=== PATIENT | male | born 2005 | race Caucasian/White ===

== ENCOUNTER → 2024-12-12 09:07 | Outpatient (BNVA) | payer SELFPAY | DX: Z02.89 Encounter for other administrative examinations (principal) ==

== ENCOUNTER 2025-07-24 23:05 | Emergency (ER) | payer OTHER, SELFPAY ==
[2025-07-24 23:12] VITALS: BP 144/65; PULSE 120; RESP 20; TEMP 37.7; O2SAT 95; BMI 22.5
[2025-07-24 23:57] LABS: IDNOW Serial# 58CA691E; Strep A Nucleic Acid Negative (Negative)
[2025-07-25 00:10] LABS: Resp Syncy Virus RNA Qual PCR NEGATIVE (Negative); SARS COV2 PCR INHOUSE NEGATIVE (Negative)
--- OUTSIDE RECORDS SUMMARY | 2025-07-25 08:50 | XMS_ITS | Encounter Summary ---
Author Organization [facility] Address [address] [place] [address] Phone Care Team Providers Care Candle Maker Name Role Phone Bruno Zuñiga MD Primary Care Provider [phone] Encounter Details Date Type Department Care Team (Late st Contact Info) Description 03/13/2016 Documentation [facility] [place] [address] [place] [address] Family Medicine, Physician [address] [place] [address] Social History Tobacco Use Types Packs/Day Years Used Date Smoking Tobacco: Never Assessed Sex and Gender Information Value Date Recorded Sex Assigned at Not on file Legal Sex Male 6:36 PM EDT Gender Identity Not on file Sexual Orientation Not on file documented as of this encounter Plan of Treatment Not on file documented as of this encounter Visit Diagnoses Not on filedocumented in this encounter Care Teams Candle Maker Relationship Specialty Start Date End Date Bruno Zuñ[place] [address] [place] [address] PCP - General 12/02/17 07/22/22 documented as of this encounter
--- OUTSIDE RECORDS SUMMARY | 2025-07-25 08:50 | XMS_ITS | Encounter Summary ---
Author Organization [facility] Address [address] [place] [address] Phone Care Team Providers Care Collection Systems Modeler Name Role Phone Bruno Zuñiga MD Primary Care Provider Encounter Details Date Type Department Care Team (Late st Contact Info) Description 12/16/2013 [facility] Medicine [address] [place] [address] Family Medicine, Physician [address] [place] [address] Social History Tobacco Use Types Packs/Day Years [...] on filedocumented in this encounter Care Teams Collection Systems Modeler Relationship Specialty Start Date End Date Bruno Zuñ[place] [address] [place] [address] PCP - General 12/02/17 07/22/22 documented as of this encounter
--- OUTSIDE RECORDS SUMMARY | 2025-07-25 08:50 | XMS_ITS | Encounter Summary ---
Author Organization [facility] Address [address] [place] [address] Phone Care Team Providers Care Refinery Technician Name Role Phone Bruno Zuñiga MD Primary Care Provider [phone] Encounter Details Date Type Department Care Team (Late st Contact Info) Description 12/20/2013 [facility] Family [facility] [address] [place], [place] [id number] Family Medicine, Physician [address] [place] [address] Social History Tobacco Use Types Packs/Day Years [...] on filedocumented in this encounter Care Teams Refinery Technician Relationship Specialty Start Date End Date Bruno Zuñ[place] [address] [place] [address] PCP - General 12/02/17 07/22/22 documented as of this encounter
--- OUTSIDE RECORDS SUMMARY | 2025-07-25 08:50 | XMS_ITS | Encounter Summary ---
Author Organization [facility] Address [address] [place] [address] Phone Care Team Providers Care Behavior Support Specialist Name Role Phone Bruno Zuñiga MD Primary Care Provider [phone] Encounter Details Date Type Department Care Team (Late st Contact Info) Description 03/28/2014 Documentation [facility] [place] [address] [place] [address] Family Medicine, Physician [address] [place] [address] Social History Tobacco Use Types Packs/Day Years [...] on filedocumented in this encounter Care Teams Behavior Support Specialist Relationship Specialty Start Date End Date Bruno Zuñiga [place] [address] [place] [address] PCP - General 12/02/17 07/22/22 documented as of this encounter
--- OUTSIDE RECORDS SUMMARY | 2025-07-25 08:50 | XMS_ITS | Encounter Summary ---
Author Organization [facility] Address [address] [place] [address] Phone Care Team Providers Care Remote Inpatient Coder Name Role Phone Bruno Zuñiga MD Primary Care Provider [phone] Encounter Details Date Type Department Care Team (Late st Contact Info) Description 01/22/2014 Immunization [facility] Family Medicine [address] [place] [address] Family Medicine, Physician [address] [place] [address] Social History Tobacco Use Types Packs/Day Years [...] on filedocumented in this encounter Care Teams Remote Inpatient Coder Relationship Specialty Start Date End Date Bruno Zuñ[place] [address] [place] [address] PCP - General 12/02/17 07/22/22 documented as of this encounter
--- OUTSIDE RECORDS SUMMARY | 2025-07-25 08:50 | XMS_ITS | Encounter Summary ---
Author Organization [facility] Address [address] [place] [address] Phone Care Team Providers Care Manufacturing Engineering Professor Name Role Phone Bruno Zuñiga MD Primary Care Provider [phone] Encounter Details Date Type Department Care Team (Late st Contact Info) Description 12/14/2013 Medication Management [facility] [place] [address] [place] [address] Family Medicine, Physician [address] [place] [address] Social History Tobacco Use Types Packs/Day Years [...] on filedocumented in this encounter Care Teams Manufacturing Engineering Professor Relationship Specialty Start Date End Date Bruno Zuñiga [place] [address] [place] [address] PCP - General 12/02/17 07/22/22 documented as of this encounter
--- OUTSIDE RECORDS SUMMARY | 2025-07-25 08:50 | XMS_ITS | Encounter Summary ---
Author Organization [facility] Address [address] [place] [address] Phone Care Team Providers Care Chief Cardiopulmonary Technologist Name Role Phone Bruno Zuñiga MD Primary Care Provider [phone] Encounter Details Date Type Department Care Team (Late st Contact Info) Description 08/04/2017 Documentation [facility] [place] [address] [place] [address] Family Medicine, Physician [address] [place] [address] Social History Tobacco Use Types Packs/Day Years [...] on filedocumented in this encounter Care Teams Chief Cardiopulmonary Technologist Relationship Specialty Start Date End Date Bruno Zuñ[place] [address] [place] [address] PCP - General 12/02/17 07/22/22 documented as of this encounter
--- OUTSIDE RECORDS SUMMARY | 2025-07-25 08:50 | XMS_ITS | Data Portability ---
Author Organization [facility] [address] Address [address] [place] [address] Assessment No assessment recorded. Plan of Treatment Reminders Order Date Submit Date Provider Last Modified By Organization Details Last Modified Time Details Appointments None recorded. Lab None recorded. Referral None recorded. Procedures None recorded. Surgeries None recorded. Imaging None recorded. Medication Orders ciprofloxac in 0.3 % eye drops [address] [id number], [address] [place], [address], 3 16:40:01 Patient TargetsNo targets recorded. Patient InstructionsNo instructions recorded. Reason for Referral None Reported. Problems No Known Problems Medical Equipment None Reported. Allergies No known drug allergies Medications Name Sig Start Date Stop Date Status Note LastModified by Organization Details LastModified Time ciprofloxaci n 0.3 % eye drops INSTILL 1 DROP INTO AFFECTED EYE(S) BY OPHTHALMIC ROUTE EVERY 2 HOURSWHILE AWAKE FOR 2 DAYS THEN 1 DROP EVERY 4 HRS WHILE AWAKE FOR 5 DAYS 2022 active Not Available Not Available Not Avai lable Vitals Date Recorded Body height Body mass index (BMI) [Percentile] Per age and sex Body mass index (BMI) Body weight Oxygen saturation Heart rate Respiratory rate Body temperature Systolic And Diastolic Provider Name and Address Organization Details Last Updated DateTime 3 187.96 cm 28 % 21.2 kg/m2 95183.7 4 g 98 % 110 /min 18 /min 98.6 [degF] 122/78 mm[Hg] [facility] 3 16:17:02 Social History Question Answer Notes LastModified by Organizat ion Details LastModified Time Tobacco Smoking Status Never Smoker [facility] - [facility] 03/18/2023 16:17:44 Have You Recently Traveled Abroad? No [email or web address] Information not available 03/18/2023 Sex: Unknown Functional Status Question Answer Note LastModified by Organizat ion Details LastModified Time Do you use any illicit or recreational drugs? No Information not available 03/18/2023 Do you or have you ever used any other forms of tobacco or nicotine? No [email or web address] Information not available 03/18/2023 What is your level of alcohol consumption? None [email or web address] Information not available 03/18/2023 Mental Status None recorded. Family History Relationship Description Onset Age of this Age Resolved Age Notes LastModified by Organization Details LastModified Time Father No current problems or disability Not available 03/18 16:17:35 Mother No current problems or disability [email or web address] Not available 03/18 16:17:35 Medical History No medical history recorded. Past Encounters Encounter ID Performer Location Encounter Start Date Encounter Closed Date Diagnosis/Indication Diagnosis SNOMED-CT Code Diagnosis ICD10 Code Diagnosis IMO Codes Diagnosis Note [id number] [facility] [address] [place] [address] 11/01/2021 17:08:30 11/01/2021 18:38:37 [id number] [place] [address] [address] [place] [address] 03/18/2023 16:01:34 03/18/2023 16:41:24 Acute conjunctivitis of left eye 1645172272 54694 H10.32 Based on your presentati on and exam, you are going diagnosed with Conjunctiv itis. I am going to cover you for a bacterial infection in the eye with antibiotic eye drops. Sometimes these symptoms can be caused by a virus or allergies. Viral infections with spontaneou sly resolve after 7-10 days and do not require treatment. If it is an allergy cause sometime oral allergy medication s will help with these symptoms or a allergy eye drop that can be purchased OTC. The following are my recommenda tions to help with your symptoms and this diagnosis: 1. Do not rub your eyes this can cause it to spread or damage the cornea of your eye.2. Wash surfaces such as cell phones, remotes, door knob frequently , because this is how it is transmitte d to others.3. Do not wear contacts for at least 1 week if you have contacts.4 . No makeup5. You can take Ibuprofen or Tylenol for discomfort if you are not allergic to them.6. If you get lubricatin g eye drops and put them in the refrigerat or - this can help with itching and discomfort . You should be seen again if you develop any of the following symptoms1. Eye pain or pressure behind the eye.2. Redness or significan t swelling of the eyelid or around the eye3. Headache4. Fever > 100.55. No improvemen t in current symptoms in the next 1 week. Thank you for using [facility] today, please feel free to contact us with any questions or concerns. Health Concerns Section Related Observation LastModified by Organization Detai ls LastModified Time None Recorded Concern Status LastModified by Organization Details LastModified Time None Recorded Advance Directives Directive None Recorded Payers Insurance Date Sequence Insurance Name Policy Number Policy Perdomo Covered Member ID Perdomo Member ID Guarantor Name 03/18/2023 1 [facility] Carlos Mckeon [id number] Carlos Mckeon 06/18/2022 GENERIC WORKER'S COMP (MOVED TO HOLD) [id number] Kari Chick-Renard-A Carlos Mckeon 06/18/2022 GENERIC WORKERS COMP [id number] Kari Chick-Renard-A Carlos Mckeon 06/25/2022 KARI Oc-Chick Renard A Ellie Carlos Mckeon Notes Date Note Type Note Provider Name and Address Organization Details Recorded Time 03/18/20 text/htm l Eye problemsReported by PatientHPIFor eye symptoms, patient reportsrednessanddischargebut reportsno blurred vision. For source of patient information, patient reportsinformation obtained from patient. For location, patient reportsleft. For severity, patient reportsmoderate. For onset/timing, patient [id number]. pt c/o left eye redness, crusty, irritated, & leakage x few days--no visual issues--pt reports tested positive for covid on Thursday & eye issue started at that time Jenni Crews NP [address] [place], [address], [place] - [facility] 03/18/2023 18:18:41
--- OUTSIDE RECORDS SUMMARY | 2025-07-25 08:50 | XMS_ITS | Encounter Summary ---
Author Organization [facility] Address [address] [place] [address] Phone Care Team Providers Care Manager Performance Improvement Name Role Phone Bruno Zuñiga MD Primary Care Provider [phone] Encounter Details Date Type Department Care Team (Late st Contact Info) Description 12/14/2013 Conversion Encounter [facility] [address] [place] [address] Social History Tobacco Use Types Packs/Day Years [...] on filedocumented in this encounter Care Teams Manager Performance Improvement Relationship Specialty Start Date End Date Bruno Zuñiga MD [address] [place] [address] PCP - General 12/02/17 07/22/22 documented as of this encounter
--- OUTSIDE RECORDS SUMMARY | 2025-07-25 08:50 | XMS_ITS | Encounter Summary ---
Author Organization [facility] Address [address] [place] [address] Phone Care Team Providers Care Drum Dyeing Machine Operator Name Role Phone Bruno Zuñiga MD Primary Care Provider [phone] Encounter Details Date Type Department Care Team (Late st Contact Info) Description 03/13/2015 Documentation [facility] [place] [address] [place] [address] Family Medicine, Physician [address] [place] [address] Social History Tobacco Use Types Packs/Day Years [...] on filedocumented in this encounter Care Teams Drum Dyeing Machine Operator Relationship Specialty Start Date End Date Bruno Zuñ[place] [address] [place] [address] PCP - General 12/02/17 07/22/22 documented as of this encounter
--- OUTSIDE RECORDS SUMMARY | 2025-07-25 08:50 | XMS_ITS | Encounter Summary ---
Author Organization [facility] Address [address] [place] [address] Phone Care Team Providers Care Clothing Trades Workers Name Role Phone Bruno Zuñiga MD Primary Care Provider [phone] Encounter Details Date Type Department Care Team (Late st Contact Info) Description 06/18/2015 Medication Management [facility] [place] [address] [place] [address] Family Medicine, Physician [address] [place] [address] Social History Tobacco Use Types Packs/Day Years [...] on filedocumented in this encounter Care Teams Clothing Trades Workers Relationship Specialty Start Date End Date Bruno Zuñiga [place] [address] [place] [address] PCP - General 12/02/17 07/22/22 documented as of this encounter
--- OUTSIDE RECORDS SUMMARY | 2025-07-25 08:50 | XMS_ITS | Encounter Summary ---
Author Organization [facility] Address [address] [place] [address] Phone Care Team Providers Care Donor Support Technician Name Role Phone Bruno Zuñiga MD Primary Care Provider [phone] Encounter Details Date Type Department Care Team (Late st Contact Info) Description 03/10/2015 Documentation [facility] [place] [address] [place] [address] Family Medicine, Physician [address] [place] [address] Social History Tobacco Use Types Packs/Day Years [...] on filedocumented in this encounter Care Teams Donor Support Technician Relationship Specialty Start Date End Date Bruno Zuñ[place] [address] [place] [address] PCP - General 12/02/17 07/22/22 documented as of this encounter
--- OUTSIDE RECORDS SUMMARY | 2025-07-25 08:50 | XMS_ITS | Encounter Summary ---
Author Organization [facility] Address [address] [place] [address] Phone Care Team Providers Care Cone Treater Name Role Phone Bruno Zuñiga MD Primary Care Provider [phone] Encounter Details Date Type Department Care Team (Late st Contact Info) Description 03/21/2014 Documentation [facility] [place] [address] [place] [address] Family Medicine, Physician [address] [place] [address] Social History Tobacco Use Types Packs/Day Years [...] on filedocumented in this encounter Care Teams Cone Treater Relationship Specialty Start Date End Date Bruno Zuñ[place] [address] [place] [address] PCP - General 12/02/17 07/22/22 documented as of this encounter
--- OUTSIDE RECORDS SUMMARY | 2025-07-25 08:50 | XMS_ITS | Encounter Summary ---
Author Organization [facility] Address [address] [place] [address] Phone Care Team Providers Care Video Game Engineer Name Role Phone Bruno Zuñiga MD Primary Care Provider [phone] Encounter Details Date Type Department Care Team (Late st Contact Info) Description 03/21/2014 Medication Management [facility] [place] [address] [place] [address] Family Medicine, Physician [address] [place] [address] Social History Tobacco Use Types Packs/Day Years [...] on filedocumented in this encounter Care Teams Video Game Engineer Relationship Specialty Start Date End Date Bruno Zuñiga [place] [address] [place] [address] PCP - General 12/02/17 07/22/22 documented as of this encounter
--- OUTSIDE RECORDS SUMMARY | 2025-07-25 08:50 | XMS_ITS | Clinical Summary ---
Author Organization [facility] Address [address] [place] [address] Phone Care Team Providers Care Medical Social Worker Name Role Phone Unavailable Primary Care Provider Unavailabl e Allergies No known active allergies Medications No known medications Active Problems Problem Noted Date Diagnosed Date Chest wall asymmetry 08/09/2018 Overview (08/09/2018): [facility] at [facility] Assessment & Plan (08/09/2018 10:49 AM EST): Seen at [facility], improving nicely Personal history of underimmunization status Overview (08/09/2018): Personal history of underimmunization status (V15.83) Onset: 03/13/2016 Added by: Bruno Zuñiga Undervaccinated at parental request. Discussed in detail again today and parent declines. Assessment & Plan (08/09/2018 10:50 AM EST): Will do Menactra today, discussed travel and other vaccines recommended. Immunizations Immunization Administration Dates Next Due DTaP 5 03/09/2009, 8,01/27/2008, 008 Hep A, ped/adol 01/31/2019 Hep B, ped/adol 01/31/2019 IPV 01/31/2019 MMR 09/01/2018,08/04/2017 Meningococcal B Trumenba 02/08/2019 Meningococcal Conj (Menactra) MCV4P 08/09/2018 Tdap 03/09/2015 Typhoid, ViCPs 01/30/2019 Varicella 11/20/2008,03/13/2007 Family History Medical History Relation Name Comments Hypertension Father Heart disease (Premature) Maternal Grandfather Breast cancer Mother's Sister Diabetes Paternal Grandfather Hypertension Paternal Grandfather Relation Name Status Comments Father Maternal Grandfather Mother's Sister Paternal Grandfather Social History Tobacco Use Types Packs/Day Years Used Date Smoking Tobacco: Never Smokeless Tobacco: Never Alcohol Use Standard Drinks/Week Comments Never 0 (1 standard drink = 0.6 oz pur e alcohol) Sex and Gender Information Value Date Recorded Sex Assigned at Not on file Legal Sex Male 6:36 PM EDT Gender Identity Not on file Sexual Orientation Not on file Last Filed Vital Signs Vital Sign Reading Time Taken Comments Blood Pressure 126/62 09/01/2018 9:43 AM EST Pulse 82 09/01/2018 9:43 AM EST Temperature 37 C (98.6 F) 12/22/2017 11:57 AM EDT Respiratory Rate - - Oxygen Saturation 99% 09/01/2018 9:43 AM EST Inhaled Oxygen Concentration - - Weight 62.8 kg (138 lb 7.2 oz) 09/01/2018 9:43 A M EST Height 181 cm (5' 11.25 ) 09/01/2018 9:43 AM EST Body Mass Index 19.17 09/01/2018 9:43 AM EST Plan of Treatment Health Maintenance Due Date Last Done Comments HPV Vaccines (1 - Male 3-dose series) 2018 Hepatitis B Vaccines (2 of 3 - 3-dose series) 02/28/2019 01/31/2019 IPV Vaccines (2 of 3 - 4-dose series) 02/28/2019 01/31/2019 Meningococcal Vaccine (2 - 2-dose series) 2019 08/09/2018 Hepatitis A Vaccines (2 of 2 - 2-dose series) 08/03/2019 01/31/2019 Men B Vaccine (2 of 2 - Trumenba SCDM 2-dose series) 08/11/2019 02/08/2019 Influenza Vaccines (#1) 2025 DTaP,Tdap,and Td Vaccines (6 - Td or Tdap) 03/09/2025 03/09/2015, 03/09/2009, 03/10/2008, Additional history exists COVID-19 Vaccine ( season) 2025 Varicella Vaccines Completed 11/20/2008, 03/13/2007 MMR Vaccines Completed 09/01/2018, 08/04/2017 HIB Vaccines Aged Out No longer eligi ble based on patient's age to complete this topic Pneumococcal Vaccine Aged Out No long er eligible based on patient's age to complete this topic Insurance [employer]
--- OUTSIDE RECORDS SUMMARY | 2025-07-25 08:50 | XMS_ITS | Encounter Summary ---
Author Organization [facility] Address [address] [place] [address] Phone Care Team Providers Care Patternmaker All Around Name Role Phone Bruno Zuñiga MD Primary Care Provider Encounter Details Date Type Department Care Team (Late st Contact Info) Description 03/21/2014 Medication Management [facility] [place] [address] [place] [address] Family Medicine, Physician [address] [place] [address] Social History Tobacco Use Types Packs/Day Years [...] on filedocumented in this encounter Care Teams Patternmaker All Around Relationship Specialty Start Date End Date Bruno Zuñiga [place] [address] [place] [address] PCP - General 12/02/17 07/22/22 documented as of this encounter
--- OUTSIDE RECORDS SUMMARY | 2025-07-25 08:50 | XMS_ITS | Encounter Summary ---
Author Organization [facility] Address [address] [place] [address] Phone Care Team Providers Care Cruise Agent Name Role Phone Bruno Zuñiga MD Primary Care Provider [phone] Encounter Details Date Type Department Care Team (Late st Contact Info) Description 03/21/2016 Documentation [facility] [place] [address] [place] [address] Family Medicine, Physician [address] [place] [address] Social History Tobacco Use Types Packs/Day Years [...] on filedocumented in this encounter Care Teams Cruise Agent Relationship Specialty Start Date End Date Bruno Zuñiga [place] [address] [place] [address] PCP - General 12/02/17 07/22/22 documented as of this encounter
--- OUTSIDE RECORDS SUMMARY | 2025-07-25 08:50 | XMS_ITS | Encounter Summary ---
Author Organization [facility] Address [address] [place] [address] Phone Care Team Providers Care Window Shade Estimator Name Role Phone Bruno Zuñiga MD Primary Care Provider [phone] Encounter Details Date Type Department Care Team (Late st Contact Info) Description 11/13/2015 Documentation [facility] [place] [address] [place] [address] Family Medicine, Physician [address] [place] [address] Social History Tobacco Use Types Packs/Day Years [...] on filedocumented in this encounter Care Teams Window Shade Estimator Relationship Specialty Start Date End Date Bruno Zuñ[place] [address] [place] [address] PCP - General 12/02/17 07/22/22 documented as of this encounter
--- OUTSIDE RECORDS SUMMARY | 2025-07-25 08:50 | XMS_ITS | Encounter Summary ---
Author Organization [facility] Address [address] [place] [id number] Phone Care Team Providers Care Record Changer Tester Name Role Phone Bruno Zuñiga MD Primary Care Provider [phone] Encounter Details Date Type Department Care Team (Late st Contact Info) Description 03/10/2014 Documentation [facility] [place] Family Medicine [address] [place] [address] Family Medicine, Physician [address] [place] [address] Social History Tobacco Use Types Packs/Day Years [...] on filedocumented in this encounter Care Teams Record Changer Tester Relationship Specialty Start Date End Date Bruno Zuñiga [place] [address] [place] [id number] PCP - General 12/02/17 07/22/22 documented as of this encounter
--- OUTSIDE RECORDS SUMMARY | 2025-07-25 08:50 | XMS_ITS | Encounter Summary ---
Author Organization [facility] Address [address] [place] [id number] Phone Care Team Providers Care Window Glass Cutter Off Name Role Phone Bruno Zuñiga MD Primary Care Provider [phone] Encounter Details Date Type Department Care Team (Late st Contact Info) Description 03/22/2015 Documentation [facility] [place] Family Medicine [address] [place] [address] Family Medicine, Physician [address] [place] [address] Social History Tobacco Use Types Packs/Day Years [...] filedocumented in this encounter Care Teams Window Glass Cutter Off Relationship Specialty Start Date End Date Bruno Zuñ[place] [address] [place] [id number] PCP - General 12/02/17 07/22/22 documented as of this encounter
== END 2025-07-25 09:00 | disposition home or self-care (01) ==
PROVIDERS: Emergency Provider Emergency Medicine
DX: J10.1 Influenza due to other identified influenza virus with other respiratory manifestations (principal); R05.9 Cough, unspecified; Z03.818 Encounter for observation for suspected exposure to other biological agents ruled out
CPT/HCPCS: 87637; 87651; 99282; 99283